=== PATIENT | female | born 1960 | race Caucasian/White ===

== ENCOUNTER → 2018-03-10 13:43 | Outpatient (CLI) | payer MEDICAID, SELFPAY | PROVIDERS: Family Provider Family Medicine; PCP Family Medicine; Visit Provider Family Medicine | DX: R00.0 Tachycardia, unspecified (principal) | CPT/HCPCS: 93225; 93226 ==

== ENCOUNTER 2018-10-15 09:24 | Emergency (ER) | payer MEDICAID, SELFPAY ==
[2018-10-15 09:25] VITALS: BP 134/78; PULSE 111; RESP 16; TEMP 36.7; O2SAT 96; BMI 35.4
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
--- NOTE | 2018-10-15 10:07 | ED.RN ---
DISCHARGE INSTRUCTIONS GIVEN TO AND REVIEWED WITH PATIENT, PATIENT DENIES QUESTIONS OR CONCERNS AND VOICES UNDERSTANDING OF DISCHARGE INSTRUCTIONS. PT AMBULATES OUT OF ROOM WITHOUT DIFFICULTY.
--- OUTSIDE RECORDS SUMMARY | 2018-12-10 04:50 | XMS RPT_ITS ---
:1960 Author Organization [employer] Address [address] [place] [address] Phone Care Team Providers Name Role Phone Ruby EMMANUEL, Ruy Kc Unavailable Reason for Visit Reason For Visit Description Start Date Postop - subsequent visit Preliminary reason for visit data, not yet signed by the author as of lower neck post Laminectomy C4 C5 C6 C7; fusion C3 C4 C5 C6 C7; instrumentation; allograft bone; local bone; application of Wei cigar head perforator. on 12/23/2017 Preliminary reason for visit data, not yet signed by the author as of Chief Complaint Chief Complaint Description Start Date lower neck post Laminectomy C4 C5 C6 C7; fusion C3 C4 C5 C6 C7; instrumentation; allograft bone; local bone; application of Wei cigar head perforator. on 12/23/2017 Preliminary chief complaint data, not yet signed by the author as of Instructions Instruction Description Start Date CompletedPlease follow-up with Primary Care Physician or Veterinary Bacteriologist for treatment or adjustment of medication regarding elevated blood pressure.Patient advised to follow-up with Primary Care Physician for BMI management. Plan of Care Type Date Detail Appointment 09:30 AM Ruy Beltran MD, [address] [facility], [place], [address], Patient education \[email or web address] Medications Medication Instructions Start Stop Generic Name NDC Provider Date Date MIRALAX PACK Take one POLYETHYLENE 87321017948 Aniya packet / GLYCOL 3350 [place] needed PA-C CYCLOBENZAPRINE 1 tablet 3-4 CYCLOBENZAPRINE [id number] Ruy Kc HCL 10 MG TABS times daily HCL Ruby EMMANUEL ALBUTEROL SULFATE as needed ALBUTEROL SULFATE [id number] Ruy Kc NEB NEBU Ruby EMMANUEL COMBIVENT 18-103 1 puff four IPRATROPIUM-ALBUT [id number] Ruy M MCG/ACT INHALATION times daily SHANNAN Ruby EMMANUEL AEROSOL AEROSPAN 80 2 puffs twice FLUNISOLIDE HFA [id number] Ruy M MCG/ACT INHALATION daily Ruby EMMANUEL AEROSOL SOLUTION LISINOPRIL 10 MG 1 tablet daily LISINOPRIL [id number] Ruy M TABS Ruby EMMANUEL Conditions or Problems Problem Problem Onset Status Entry Provider Comment Standard Annotate Name Code Date Date Description S/P 33147431241 Active Aniya History of laminectomy cervical 01 (SNOMED 01/11 01/11 [place] cervical spine C4-[address]) PA-C fusion C3-7 fusion Spondylolis 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 Active Ruy 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 Vital Signs Date Name Value Unit Description BMI (Body Mass 35.43 kg/m2 Body Mass Index Index) [Ratio] Preliminary vital sign data, not yet signed by the author as of BP Diastolic 95 mm[Hg] blood pressure, diastolic Preliminary vital sign data, not yet signed by the author as of BP Diastolic 84 mm[Hg] blood pressure, diastolic, second observation Preliminary vital sign data, not yet signed by the author as of BP Systolic 140 mm[Hg] blood pressure, systolic Preliminary vital sign data, not yet signed by the author as of BP Systolic 133 mm[Hg] blood pressure, systolic, second observation Preliminary vital sign data, not yet signed by the author as of Heart Rate 105 /min pulse rate E&M Preliminary vital sign data, not yet signed by the author as of Height 62 [in_us] height E&M Preliminary vital sign data, not yet signed by the author as of Height 157 cm height in centimeters E&M Preliminary vital sign data, not yet signed by the author as of Weight Measured 193 [lb_av] weight E&M Preliminary vital sign data, not yet signed by the author as of Weight Measured 88 kg weight in kilograms E&M Preliminary vital sign data, not yet signed by the author as of Results Date Name Value Unit Range Flag Description Office Visit: Postop - subsequent visit, Rm: MEDS REVIEW Done Documentation of current medications (procedure) Preliminary observation data, not yet signed by the author as of MRI HX of the cervical on MRI (magnetic 09/17/2017 at [facility]) history Preliminary observation data, not yet signed by the author as of Preliminary observation data, not yet signed by the author as of Clinical Summary: HMSPatientID OOP account number Procedures Code Procedure Name Date Entry Date CPT-76476 XR CERVICAL 2-3 VWS AP/LAT G8730 Pain assessment documented as positive - follow-up documented G8427 Current medications documented 1036F Tobacco screening was negative - non user G8417 BMI documented as above normal parameters - follow-up documented [id number] Patient Encounter Medications Administered No information available. Immunizations No information available. Advance Directives There may be information available, but it has not been provided by the sender. Assessments There may be information available, but it has not been provided by the sender. Review of Systems There may be information available, but it has not been provided by the sender. Family History There may be information available, but it has not been provided by the sender. History of Past Illness There may be information available, but it has not been provided by the sender. History of Present Illness There may be information available, but it has not been provided by the sender.
--- OUTSIDE RECORDS SUMMARY | 2018-12-10 04:50 | XMS RPT_ITS ---
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 silhouette: Normal cardiomediastinal silhouette. Other: Partially visualized cervical spinal fusion hardware noted. IMPRESSION: No acute radiographic abnormality. Log Roller: DinnerTimeB Transcribe Date/Time: Mar 01 2018 7:13P Dictated by : POLINA JI MD This examination was interpreted and the report reviewed and electronically signed by: POLINA JI MD on Mar 01 2018 7:13PM EST [id number] CBC AND DIFFERENTIAL Collected: 03/01/2018 Status: F Source: [place] 5:05 PM [facility] REPOSITORY TYPE CODE TESTS RESULT OUT OF REFERENCE UNITS RANGE LAB WBC 3.70-11.00 k/uL WBC 7.30 LAB RBC 3.90-5.20 m/uL RBC 4.70 LAB HGB 11.5-15.5 g/dL Hemoglobin 14.0 LAB HCT 36.0-46.0 % Hematocrit 43.6 LAB MCV 80.0-100.0 fL MCV 92.8 LAB MCH 26.0-34.0 pG MCH 29.8 LAB MCHC 30.5-36.0 g/dL MCHC 32.1 LAB RDWCV 11.5-15.0 % RDW-CV 12.1 LAB PLTCT 150-400 k/uL Platelet High Count 405 LAB MPV 9.0-12.7 fL MPV 9.7 LAB ANEUT % Neut% 51.4 LAB AANEUT 1.45-7.50 k/uL Abs Neut 3.75 LAB ALYMP % Lymph% 27.4 LAB AALYMP 1.00-4.00 k/uL Abs Lymph 2.00 LAB AMONO % Hawkins% 9.0 LAB AAMONO <0.87 k/uL Abs Hawkins 0.66 LAB AEOS % Eosin% 10.3 LAB AAEOS <0.46 k/uL Abs High Eosin 0.75 LAB ABASO % Baso% 1.9 LAB AABASO <0.11 k/uL Abs Baso High 0.14 LAB AUNRBC 0 /100 WBC NRBCs 0.0 LAB ABNRBC <0.01 k/uL Absolute nRBC <0.01 LAB DTYP DTYPE Auto Diff Performed By: #### CBCDIF, CMP, TSH #### [facility] [address] [place], [place] [address] COMP METABOLIC PANEL Collected: 03/01/2018 Status: F Source: [place] 5:05 PM [facility] REPOSITORY TYPE CODE TESTS RESULT OUT OF REFERENCE UNITS RANGE LAB TP 6.3-8.0 g/dL Protein, Total 7.8 LAB ALB 3.9-4.9 g/dL Albumin 4.6 LAB CA 8.5-10.2 mg/dL Calcium, Total 9.8 LAB TBIL 0.2-1.3 mg/dL Bilirubin, Total 0.2 LAB ALKP 32-117 U/L Alkaline Phosphatase 101 LAB AST 13-35 U/L AST High 57 LAB GLU 74-99 mg/dL Glucose High 104 Result Comment: The [place] Diabetes Association (ADA) provides guidance for cutoff values for fasting glucose and random glucose. The ADA defines fasting as no caloric intake for at least 8 hours. Fas ting plasma glucose results between 100 to 125 mg/dL indicate increased risk for diabetes (prediabetes). Fasting plasma glucose results greater than or equal to 126 mg/dL meet the criteria for diagnosis of diabetes. In the absence of unequivocal hyperglycemia, results should be confirmed by repeat testing. In a patient with classic symptoms of hyperglycemia or hyperglycemic crisis, random plasma glucose results greater than or equal to 200 mg/dL meet the criteria for diagnosis of diabetes. Reference: Standards of Medical Care in Diabetes 2016, [place] Diabetes Association. Diabetes Care. 2016.39(Suppl 1). LAB BUN 7-21 mg/dL BUN 18 LAB CRET 0.58-0.96 mg/dL Creatinine 0.88 LAB NA 136-144 mmol/L Low Sodium 133 LAB K 3.7-5.1 mmol/L Potassium 4.8 LAB CL 97-105 mmol/L Low Chloride 96 LAB CO2 22-30 mmol/L CO2 25 LAB AGAP 9-18 mmol/L Anion Gap 12 LAB ALT 7-38 U/L ALT High 93 LAB GFRAA eGFR- Amer. >60 LAB GFRNAA . eGFR-All Other Races >60 Result Comment: eGFR (Estimated GFR) Units of measure: mL/min/1.73 meters squared eGFR is derived from the reexpressed MDRD Study equation using the following parameters: serum creatinine, age, gender and race. The creatinine assay has been calibrated to be traceable to IDMS. An eGFR <60 mL/min/1.73m2 for >3 months is consistent with chronic kidney disease. Refer to KDOQI guidelines for clinical interpretation. In patients with unstable renal function, e.g. those with acute kidney injury, the eGFR may not accurately reflect actual GFR. Performed By: #### CBCDIF, CMP, TSH #### [facility] [address] [place], [place] [address] TSH Collected: 03/01/2018 Status: F Source: [place] 5:05 PM [facility] REPOSITORY TYPE CODE TESTS RESULT OUT OF RANGE REFERENCE UNITS LAB TSH 0.400-5.500 uU/mL TSH 2.550 Performed By: #### CBCDIF, CMP, TSH #### [facility] [address] [place], [place] [address] PROGRESS Observed: 03/01/2018 Status: COMPLETED Source: [place] 4:21 PM [facility] REPOSITORY HNO ID: [id number] Author: Contreras Valdivia Service: (none) Author Type: Physician Type: Progress Notes Filed: 03/01/2018 5:00 PM Note Text: Patient presents with: Cough HPI: Patient presents today for office visit for follow up. She also did not do her labs. When was here the last time, was to have done a holter and echo and has not yet. Echo is scheduled. We are going to try and get holter rescheduled. Nursing Notes: Codie Espinosa LPN 03/01/2018 3:59 PM Signed Using mucinex D OTC which helps to control cough. Wondering if people smoking in her apartment while she was at hospital has irritated her COPD/allergies. Was having to use her rescue inhaler 4-5 times per day over the weekend. Doesn't have a nebulizer at home. Worried about inhaler/nebulizer medications causing increase in her tachycardia. Still has aerospan that she is using and will be picking up flovent that insurance requests to replace it. Explained to her that mucinex d will also cause issues with tachycardia. Just had walked back on arrival. Patient presents today complaining of increased cough. Duration: cough has been there for two weeks. Cough is productive:YES, greenish. . Fever: :No. Shortness of breath:YES. Sore throat :No. Ear Pain :No. Chest Pain :No. No nausea or vomiting or diarrhea. MEDICATIONS: Current Outpatient Prescriptions: ipratropium-albuterol (COMBIVENT RESPIMAT) 20-100 mcg/actuation mist Inhale 1 Puff as instructed four times daily. Fluticasone Propionate (FLOVENT DISKUS) 250 mcg/actuation dsdv Inhale 1 Puff as instructed twice daily. HYDROcodone-acetaminophen (NORCO) 5-325 mg per tablet Take 1 tablet by mouth every 6 hours as needed. diazePAM (VALIUM) 5 mg tablet Take 5 mg by mouth every 6 hours as needed for Anxiety. hydrOXYzine pamoate (VISTARIL) 25 mg capsule Take 1 capsule by mouth three times daily as needed. cyclobenzaprine (FLEXERIL) 10 mg tablet Take 1 tablet by mouth every 8 hours as needed. polyethylene glycol 3350 (MIRALAX, GLYCOLAX) 17 gram/dose powder Take 17 g by mouth once daily. This is one (1) capful. Stir in 8oz of liquid each day. fluticasone (FLONASE) 50 mcg/actuation nasal spray Use 2 Sprays in each nostril once daily. FOR ALLERGIC NASAL SX. albuterol HFA (VENTOLIN HFA) 90 mcg/actuation inhaler Inhale 2 Puffs as instructed every 4 hours as needed for Wheezing/Shortness of Breath. lisinopril (ZESTRIL, PRINIVIL) 10 mg tablet Take 1 tablet by mouth once daily. thiamine (VITAMIN B1) 100 mg tablet Take 1 tablet by mouth once daily. No current facility-administered medications for this visit. ALLERGIES: ALLERGIES Allergen Reactions - Dust Other: See Comments PAST MEDICAL HISTORY Diagnosis Date - Abdominal pain, unspecified site - Asthma - HTN (hypertension) PAST SURGICAL HISTORY Procedure Laterality Date - BREAST BIOPSY NEEDLE LEFT - COLONOSCOP W/ OR W/O [facility] SPEC 10/06/13 Colonoscopy - HYSTERECTOMY HX 2007 JE[facility]DE BSO endometriosis - PAST SURGICAL HISTORY OF c spine surg FAMILY HISTORY Problem Relation Age of Onset - Cancer Father skin cancer - suicide [OTHER] Brother - None Sister - None Sister - None Sister - Colon Cancer Other multiple aunts and uncles with colon cancer Social History Marital status: Spouse name: Years of education: Number of children: 4 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 REVIEW OF SYSTEMS All other reviewed and negative other than HPI. VITALS: BP 132/92 Pulse (!) 125 Wt 86.2 kg (190 lb) SpO2 95% BMI 34.75 kg/m2 Last 4 Encounter Wt Readings: Date: Wt: 03/01/2018 86.2 kg (190 lb) 12/29/2017 88.9 kg (196 lb) 12/22/2017 88.9 kg (196 lb) 11/02/2017 87.5 kg (192 lb 12.8 oz) PHYSICAL EXAMINATION: General appearance: Well appearing, alert, in no acute distress, well-hydrated, well nourished. Skin: Skin color, texture, turgor normal, no suspicious rashes or lesions Head: Normocephalic, no masses, lesions, tenderness or abnormalities Neck: supple, no lymphadenopathy Lungs: Lungs clear to auscultation. No wheezing, rhonchi, rales Heart:tachy without murmur, gallop, or rubs. No ectopy Abdomen: Normal abdominal exam, Abdomen soft, non-tender. Bowel sounds normal. No masses, organomegaly Extremities: No deformities, edema, skin discoloration, clubbing or cyanosis. Good capillary refill. ASSESSMENT/PLAN: 1. Acute bronchitis with chronic obstructive pulmonary disease (COPD) (HCC) - ICD9: 491.22, ICD10: J44.0, J20.9 (primary diagnosis) - Red flags for re-assessment reviewed with patient in detail. - Call if symptoms worsen at all or if not better in one to two weeks - XR CHEST 2V FRONTAL/LAT - DOXYCYCLINE MONOHYDRATE 100 MG TABLET 2. Tachycardia - ICD9: 785.0, ICD10: R00.0 - get labs and holter and echo as ordered last visit. Call if christoph. - ECG COMPLETE W INTERPRETATION 3. Essential hypertension - ICD9: 401.9, ICD10: I10 - follow numbers Contreras Valdivia MD CNOV Observed: 03/01/2018 Status: COMPLETED Source: [place] 4:00 PM [facility] REPOSITORY Office Visit (FAMPWS) SULMA NUNES ([id number]) 1960 F Date Time Provider Department 03/01/18 4:00 PM [facility] During your visit today, we recorded the following information about you: Pulse Blood pressure Weight 125/minute 132/92 86.2 kg Codie Snowboydrobby RANDY 03/01/2018 3:59 PM Signed Using mucinex D OTC which helps to control cough. Wondering if people smoking in her apartment while she was at hospital has irritated her COPD/allergies. Was having to use her rescue inhaler 4-5 times per day over the weekend. Doesn't have a nebulizer at home. Worried about inhaler/nebulizer medications causing increase in her tachycardia. Still has aerospan that she is using and will be picking up flovent that insurance requests to replace it. Codie Snowodin PADILLA 03/01/2018 3:59 PM Addendum Wants to have holter monitor done at [facility] [phone]. [facility] [phone]. Get delsym or robitussin DM over the counter if you need it. Contreras Valdivia MD 03/01/2018 5:00 PM Signed Patient presents with: Cough HPI: Patient presents today for office visit for follow up. She also did not do her labs. When was here the last time, was to have done a holter and echo and has not yet. Echo is scheduled. We are going to try and get holter rescheduled. Nursing Notes: Codie Espinosa RANDY 03/01/2018 3:59 PM Signed Using mucinex D OTC which helps to control cough. Wondering if people smoking in her apartment while she was at hospital has irritated her COPD/allergies. Was having to use her rescue inhaler 4-5 times per day over the weekend. Doesn't have a nebulizer at home. Worried about inhaler/nebulizer medications causing increase in her tachycardia. Still has aerospan that she is using and will be picking up flovent that insurance requests to replace it. Explained to her that mucinex d will also cause issues with tachycardia. Just had walked back on arrival. Patient presents today complaining of increased cough. Duration: cough has been there for two weeks. Cough is productive:YES, greenish. . Fever: :No. Shortness of breath:YES. Sore throat :No. Ear Pain :No. Chest Pain :No. No nausea or vomiting or diarrhea. MEDICATIONS: Current Outpatient Prescriptions: ipratropium-albuterol (COMBIVENT RESPIMAT) 20-100 mcg/actuation mist Inhale 1 Puff as instructed four times daily. Fluticasone Propionate (FLOVENT DISKUS) 250 mcg/actuation dsdv Inhale 1 Puff as instructed twice daily. HYDROcodone-acetaminophen (NORCO) 5-325 mg per tablet Take 1 tablet by mouth every 6 hours as needed. diazePAM (VALIUM) 5 mg tablet Take 5 mg by mouth every 6 hours as needed for Anxiety. hydrOXYzine pamoate (VISTARIL) 25 mg capsule Take 1 capsule by mouth three times daily as needed. cyclobenzaprine (FLEXERIL) 10 mg tablet Take 1 tablet by mouth every 8 hours as needed. polyethylene glycol 3350 (MIRALAX, GLYCOLAX) 17 gram/dose powder Take 17 g by mouth once daily. This is one (1) capful. Stir in 8oz of liquid each day. fluticasone (FLONASE) 50 mcg/actuation nasal spray Use 2 Sprays in each nostril once daily. FOR ALLERGIC NASAL SX. albuterol HFA (VENTOLIN HFA) 90 mcg/actuation inhaler Inhale 2 Puffs as instructed every 4 hours as needed for Wheezing/Shortness of Breath. lisinopril (ZESTRIL, PRINIVIL) 10 mg tablet Take 1 tablet by mouth once daily. thiamine (VITAMIN B1) 100 mg tablet Take 1 tablet by mouth once daily. No current facility-administered medications for this visit. ALLERGIES: ALLERGIES Allergen Reactions - Dust Other: See Comments PAST MEDICAL HISTORY Diagnosis Date - Abdominal pain, unspecified site - Asthma - HTN (hypertension) PAST SURGICAL HISTORY Procedure Laterality Date - BREAST BIOPSY NEEDLE LEFT - COLONOSCOP W/ OR W/O [facility] SPEC 10/06/13 Colonoscopy - HYSTERECTOMY HX 2006 [facility]AUDE BSO endometriosis - PAST SURGICAL HISTORY OF c spine surg FAMILY HISTORY Problem Relation Age of Onset - Cancer Father skin cancer - suicide [OTHER] Brother - None Sister - None Sister - None Sister - Colon Cancer Other multiple aunts and uncles with colon cancer Social History Marital status: Spouse name: Years of education: Number of children: 4 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 REVIEW OF SYSTEMS All other reviewed and negative other than HPI. VITALS: BP 132/92 Pulse (!) 125 Wt 86.2 kg (190 lb) SpO2 95% BMI 34.75 kg/m2 Last 4 Encounter Wt Readings: Date: Wt: 03/01/2018 86.2 kg (190 lb) 12/29/2017 88.9 kg (196 lb) 12/22/2017 88.9 kg (196 lb) 11/02/2017 87.5 kg (192 lb 12.8 oz) PHYSICAL EXAMINATION: General appearance: Well appearing, alert, in no acute distress, well-hydrated, well nourished. Skin: Skin color, texture, turgor normal, no suspicious rashes or lesions Head: Normocephalic, no masses, lesions, tenderness or abnormalities Neck: supple, no lymphadenopathy Lungs: Lungs clear to auscultation. No wheezing, rhonchi, rales Heart:tachy without murmur, gallop, or rubs. No ectopy Abdomen: Normal abdominal exam, Abdomen soft, non-tender. Bowel sounds normal. No masses, organomegaly Extremities: No deformities, edema, skin discoloration, clubbing or cyanosis. Good capillary refill. ASSESSMENT/PLAN: 1. Acute bronchitis with chronic obstructive pulmonary disease (COPD) ([facility]) - ICD9: 491.22, ICD10: J44.0, J20.9 (primary diagnosis) - Red flags for re-assessment reviewed with patient in detail. - Call if symptoms worsen at all or if not better in one to two weeks - XR CHEST 2V FRONTAL/LAT - DOXYCYCLINE MONOHYDRATE 100 MG TABLET 2. Tachycardia - ICD9: 785.0, ICD10: R00.0 - get labs and holter and echo as ordered last visit. Call if worsnes. - ECG COMPLETE W INTERPRETATION 3. Essential hypertension - ICD9: 401.9, ICD10: I10 - follow numbers Contreras Valdivia MD Referring Provider: SELF [[id number]] Allergies As of Date: 03/01/2018 Noted Allergy Reaction DUST 06/30/2017 14 - Other: See Comments Date Reviewed: 02/12/2018 Reviewed by: Satya Stewart - Fully Assessed Reason for Visit: Cough [28] Primary Visit Diagnosis:Acute bronchitis with chronic obstructive pulmonary disease (COPD) ([facility]) [J44.0, J20.9] Other Visit Diagnoses:Tachycardia [R00.0] Essential hypertension [I10] Order(s):ECG COMPLETE W INTERPRETATION [ECG01] Order #: [id number] FUTURE XR CHEST 2V FRONTAL/LAT [[id number]] Order #: [id number] FUTURE doxycycline monohydrate 100 mg tabletTake 1 tablet by mouth twice daily for 10 days.Disp: 20 tabletRfl: 0 benzonatate (TESSALON PERLE) 100 mg capsule1-2 perles po tid prnDisp: 30 capsuleRfl: 0 Prescriptions as of 03/01/2018 Sig: IPRATROPIUM 20 MCG-ALBUTEROL * Inhale 1 Puff as instructed f* DOXYCYCLINE MONOHYDRATE 100 M* Take 1 tablet by mouth twice * BENZONATATE 100 MG CAPSULE 1-2 perles po tid prn FLUTICASONE 250 MCG/ACTUATION* Inhale 1 Puff as instructed t* HYDROCODONE 5 MG-ACETAMINOPHE* Take 1 tablet by mouth every * DIAZEPAM 5 MG TABLET Take 5 mg by mouth every 6 ho* HYDROXYZINE PAMOATE 25 MG CAP* Take 1 capsule by mouth three* CYCLOBENZAPRINE 10 MG TABLET Take 1 tablet by mouth every * POLYETHYLENE GLYCOL 3350 17 G* Take 17 g by mouth once daily* FLUTICASONE 50 MCG/ACTUATION * Use 2 Sprays in each nostril * ALBUTEROL SULFATE HFA 90 MCG/* Inhale 2 Puffs as instructed * LISINOPRIL 10 MG TABLET Take 1 tablet by mouth once d* THIAMINE HCL (VITAMIN B1) 100* Take 1 tablet by mouth once d* Problem List As Of Date 03/01/2018 Noted Resolved Asthma [J45.909] INVALID FOR* Anxiety and depression [F41.9, F32.9] INVALID FOR* Tobacco use disorder [F17.200] INVALID FOR*03/09/2017 Cervical radicular pain [M54.12] INVALID FOR* Brachial neuritis or radiculitis [M54.12] INVALID FOR* Essential hypertension [I10] INVALID FOR* ETOH abuse [F10.10] INVALID FOR* RLQ abdominal pain [R10.31] INVALID FOR*12/22/2017 More... Encounter for screening for malignant neoplasm *INVALID FOR* More... Other instructions from your clinician: Wants to have holter monitor done at [facility] [phone]. [facility] [phone]. Get delsym or robitussin DM over the counter if you need it. Visit Notes: >> Codie Espinosa LPN ThuMar 01, 2018 3:46 PM Status: Signed Using mucinex D OTC which helps to control cough. Wondering if people smoking in her apartment while she was at hospital has irritated her COPD/allergies. Was having to use her rescue inhaler 4-5 times per day over the weekend. Doesn't have a nebulizer at home. Worried about inhaler/nebulizer medications causing increase in her tachycardia. Still has aerospan that she is using and will be picking up flovent that insurance requests to replace it. Prescriptions ordered this encounter Disp Refills Start End DOXYCYCLINE MONOHYDRATE 100 MG TABLET 20 t* 0 03/01/2018 03/11/2018 Route: ORAL Sig: Take 1 tablet by mouth twice daily for 10 days. BENZONATATE 100 MG CAPSULE 30 c* 0 03/01/2018 Si-2 perles po tid prn Disposition: Return in about 2 weeks (around 03/15/2018). Follow-up and Disposition History Recorded Encounter Status:Closed by CONTRERAS VALDIVIA MD on 03/01/18 Observed: 02/14/2018 Status: F Source: [place] URINE CULTURE 8:56 AM [facility] REPOSITORY Sp. Request/Comment: - Specimen received in preservative Culture Result - No growth (<1,000 CFU/ml) Performed By: #### URCUL #### [facility] [address] [id number] PROGRESS Observed: 02/12/2018 Status: COMPLETED Source: [place] 11:49 AM [facility] REPOSITORY HNO ID: [id number] Author: Contreras Valdivia Service: (none) Author Type: Physician Type: Progress Notes Filed: 02/12/2018 12:34 PM Note Text: Patient presents with: UTI: Burning, urgency and frequency for 2 days. Palpitations: Has been anxious, states her heart rate was tachy in hospitial dec. . has not experienced any palpitations. HPI: Patient presents today for office visit for follow up. Urology: patient is concerned about urinary symptoms. Duration of symptoms: 2 days Dysuria: Yes. Urinary urgency: yes Urinary frequency: Yes. Suprapubic pain: No. Back pain: No. Fever: No. Nausea: No. Vomiting: No. Had cath in b Had spinal surgery in Dec. Was tachy in the hospital. Went numb twice when she stood up after surgery. Heart rate was fast and she went back to hospital. They just told her not to get up by herself and they wondered if tachycardia was causing it. No actual syncope. Was in rehab facility. Still occasionally does not feel right. Short of breath with exertion. No edema. No chest pain MEDICATIONS: Current Outpatient Prescriptions: HYDROcodone-acetaminophen (NORCO) 5-325 mg per tablet Take 1 tablet by mouth every 6 hours as needed. diazePAM (VALIUM) 5 mg tablet Take 5 mg by mouth every 6 hours as needed for Anxiety. hydrOXYzine pamoate (VISTARIL) 25 mg capsule Take 1 capsule by mouth three times daily as needed. cyclobenzaprine (FLEXERIL) 10 mg tablet Take 1 tablet by mouth every 8 hours as needed. polyethylene glycol 3350 (MIRALAX, GLYCOLAX) 17 gram/dose powder Take 17 g by mouth once daily. This is one (1) capful. Stir in 8oz of liquid each day. flunisolide (AEROSPAN) 80 mcg/actuation HFAA Inhale 2 Puffs as instructed twice daily. Rinse mouth after use. fluticasone (FLONASE) 50 mcg/actuation nasal spray Use 2 Sprays in each nostril once daily. FOR ALLERGIC NASAL SX. ipratropium-albuterol (COMBIVENT RESPIMAT) 20-100 mcg/actuation mist Inhale 1 Puff as instructed four times daily. albuterol HFA (VENTOLIN HFA) 90 mcg/actuation inhaler Inhale 2 Puffs as instructed every 4 hours as needed for Wheezing/Shortness of Breath. lisinopril (ZESTRIL, PRINIVIL) 10 mg tablet Take 1 tablet by mouth once daily. thiamine (VITAMIN B1) 100 mg tablet Take 1 tablet by mouth once daily. No current facility-administered medications for this visit. ALLERGIES: ALLERGIES Allergen Reactions - Dust Other: See Comments PAST MEDICAL HISTORY Diagnosis Date - Abdominal pain, unspecified site - Asthma - HTN (hypertension) PAST SURGICAL HISTORY Procedure Laterality Date - BREAST BIOPSY NEEDLE [facility] Colon[facility] - HYSTERECTOMY HX 2006 JE[facility]-CLAUDE BSO endometriosis FAMILY HISTORY Problem Relation Age of Onset - Cancer Father skin cancer - suicide [OTHER] Brother - None Sister - None Sister - None Sister - Colon Cancer Other multiple aunts and uncles with colon cancer Social History Marital status: Spouse name: Years of education: Number of children: 4 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 REVIEW OF SYSTEMS All other reviewed and negative other than HPI. HEALTH MAINTENANCE: Reviewed health maintenance issues today and recommended the following in detail. VITALS: BP 124/64 (BP Site: Left Arm, BP Position: Sitting, BP Cuff Size: Regular Adult) Pulse 106 Resp 18 Pulse 100% Last 4 Encounter Wt Readings: Date: Wt: 12/29/2017 88.9 kg (196 lb) 12/22/2017 88.9 kg (196 lb) 11/02/2017 87.5 kg (192 lb 12.8 oz) 10/23/2017 83.5 kg (184 lb) PHYSICAL EXAMINATION: General appearance: Well appearing, alert, in no acute distress, well-hydrated, well nourished. Skin: Skin color, texture, turgor normal, no suspicious rashes or lesions Head: Normocephalic, no masses, lesions, tenderness or abnormalities Neck: Supple, no adenopathy Lungs: Lungs clear to auscultation. No wheezing, rhonchi, rales Heart: RRR without murmur, gallop, or rubs. No ectopy Abdomen: Normal abdominal exam, Abdomen soft, non-tender. Bowel sounds normal. No masses, organomegaly Extremities: No deformities, edema, skin discoloration, clubbing or cyanosis. Good capillary refill. ASSESSMENT/PLAN: 1. Urinary frequency - ICD9: 788.41, ICD10: R35.0 (primary diagnosis) acute - Send urine for culture - Begin treatment with Macrobid 100 mg BID for 7 days - Patient education for prevention given - UA DIP B/O - URINE CULTURE - NITROFURANTOIN MONOHYDRATE AND MACROCRYSTAL 100 MG ORAL CAP 2. Anxiety and depression - ICD9: 300.00, 311, ICD10: F41.8 - continue meds. - HYDROXYZINE PAMOATE 25 MG CAPSULE 3. Tachycardia - ICD9: 785.0, ICD10: R00.0 - will work up . - Red flags for re-assessment reviewed with patient in detail. - ECG COMPLETE W INTERPRETATION-rate in 90's, nsr - ECHO - HOLTER MONITOR 24 HOUR - CBC + DIFF - COMP METABOLIC PANEL - TSH BLD 4. Acute cystitis with hematuria - ICD9: 595.0, ICD10: N30.01 - as above. Will recheck urine in two weeks. 5. Essential hypertension - ICD9: 401.9, ICD10: I10 - good control - Continue current medication(s) - Goal of BP <140/90 Contreras Valdivia MD RTO in two weeks and prn. CNOV Observed: 02/12/2018 Status: COMPLETED Source: [place] 11:00 AM [facility] REPOSITORY [facility] SULMA NUNES ([id number]) 1960 F Date Time Provider Department 02/12/18 11:00 AM [facility] VALDIVIA [facility] During your visit today, we recorded the following information about you: Pulse Respiration Blood pressure 106/minute 18/minute 124/64 Contreras Valdivia MD 02/12/2018 12:34 PM Signed Patient presents with: UTI: Burning, urgency and frequency for 2 days. Palpitations: Has been anxious, states her heart rate was tachy in hospitial dec. . has not experienced any palpitations. HPI: Patient presents today for office visit for follow up. Urology: patient is concerned about urinary symptoms. Duration of symptoms: 2 days Dysuria: Yes. Urinary urgency: yes Urinary frequency: Yes. Suprapubic pain: No. Back pain: No. Fever: No. Nausea: No. Vomiting: No. Had cath in Dec Had spinal surgery in Dec. Was tachy in the hospital. Went ANDquot;numbANDquot; twice when she stood up after surgery. Heart rate was fast and she went back to hospital. They just told her not to get up by herself and they wondered if tachycardia was causing it. No actual syncope. Was in rehab facility. Still occasionally does not feel right. Short of breath with exertion. No edema. No chest pain MEDICATIONS: Current Outpatient Prescriptions: HYDROcodone-acetaminophen (NORCO) 5-325 mg per tablet Take 1 tablet by mouth every 6 hours as needed. diazePAM (VALIUM) 5 mg tablet Take 5 mg by mouth every 6 hours as needed for Anxiety. hydrOXYzine pamoate (VISTARIL) 25 mg capsule Take 1 capsule by mouth three times daily as needed. cyclobenzaprine (FLEXERIL) 10 mg tablet Take 1 tablet by mouth every 8 hours as needed. polyethylene glycol 3350 (MIRALAX, GLYCOLAX) 17 gram/dose powder Take 17 g by mouth once daily. This is one (1) capful. Stir in 8oz of liquid each day. flunisolide (AEROSPAN) 80 mcg/actuation HFAA Inhale 2 Puffs as instructed twice daily. Rinse mouth after use. fluticasone (FLONASE) 50 mcg/actuation nasal spray Use 2 Sprays in each nostril once daily. FOR ALLERGIC NASAL SX. ipratropium-albuterol (COMBIVENT RESPIMAT) 20-100 mcg/actuation mist Inhale 1 Puff as instructed four times daily. albuterol HFA (VENTOLIN HFA) 90 mcg/actuation inhaler Inhale 2 Puffs as instructed every 4 hours as needed for Wheezing/Shortness of Breath. lisinopril (ZESTRIL, PRINIVIL) 10 mg tablet Take 1 tablet by mouth once daily. thiamine (VITAMIN B1) 100 mg tablet Take 1 tablet by mouth once daily. No current facility-administered medications for this visit. ALLERGIES: ALLERGIES Allergen Reactions - Dust Other: See Comments PAST MEDICAL HISTORY Diagnosis Date - Abdominal pain, unspecified site - Asthma - HTN (hypertension) PAST SURGICAL HISTORY Procedure Laterality Date - BREAST BIOPSY NEEDLE LEFT - COLONOSCOP W/ OR W/O BRSH SPEC 10/06/13 Colonoscopy - HYSTERECTOMY HX 2006 JEAN-CLAUDE BSO endometriosis FAMILY HISTORY Problem Relation Age of Onset - Cancer Father skin cancer - suicide [OTHER] Brother - None Sister - None Sister - None Sister - Colon Cancer Other multiple aunts and uncles with colon cancer Social History Marital status: Spouse name: Years of education: Number of children: 4 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 REVIEW OF SYSTEMS All other reviewed and negative other than HPI. HEALTH MAINTENANCE: Reviewed health maintenance issues today and recommended the following in detail. VITALS: BP 124/64 (BP Site: Left Arm, BP Position: Sitting, BP Cuff Size: Regular Adult) Pulse 106 Resp 18 Pulse 100% Last 4 Encounter Wt Readings: Date: Wt: 12/29/2017 88.9 kg (196 lb) 12/22/2017 88.9 kg (196 lb) 11/02/2017 87.5 kg (192 lb 12.8 oz) 10/23/2017 83.5 kg (184 lb) PHYSICAL EXAMINATION: General appearance: Well appearing, alert, in no acute distress, well-hydrated, well nourished. Skin: Skin color, texture, turgor normal, no suspicious rashes or lesions Head: Normocephalic, no masses, lesions, tenderness or abnormalities Neck: Supple, no adenopathy Lungs: Lungs clear to auscultation. No wheezing, rhonchi, rales Heart: RRR without murmur, gallop, or rubs. No ectopy Abdomen: Normal abdominal exam, Abdomen soft, non-tender. Bowel sounds normal. No masses, organomegaly Extremities: No deformities, edema, skin discoloration, clubbing or cyanosis. Good capillary refill. ASSESSMENT/PLAN: 1. Urinary frequency - ICD9: 788.41, ICD10: R35.0 (primary diagnosis) acute - Send urine for culture - Begin treatment with Macrobid 100 mg BID for 7 days - Patient education for prevention given - UA DIP B/O - URINE CULTURE - NITROFURANTOIN MONOHYDRATE ANDamp; MACROCRYSTAL 100 MG ORAL CAP 2. Anxiety and depression - ICD9: 300.00, 311, ICD10: F41.8 - continue meds. - HYDROXYZINE PAMOATE 25 MG CAPSULE 3. Tachycardia - ICD9: 785.0, ICD10: R00.0 - will work up . - Red flags for re-assessment reviewed with patient in detail. - ECG COMPLETE W INTERPRETATION-rate in 90's, nsr - ECHO - HOLTER MONITOR 24 HOUR - CBC + DIFF - COMP METABOLIC PANEL - TSH BLD 4. Acute cystitis with hematuria - ICD9: 595.0, ICD10: N30.01 - as above. Will recheck urine in two weeks. 5. Essential hypertension - ICD9: 401.9, ICD10: I10 - good control - Continue current medication(s) - Goal of BP ANDlt;140/90 Contreras Valdivia MD RTO in two weeks and prn. Referring Provider: SELF [[id number]] Allergies As of Date: 02/12/2018 Noted Allergy Reaction DUST 06/30/2017 14 - Other: See Comments Date Reviewed: 02/12/2018 Reviewed by: Satya Stewart - Fully Assessed Reason for Visit: UTI [116] Cmt: Burning, urgency and frequency for 2 days. Palpitations [79] Cmt: Has been anxious, states her heart rate was tachy in hospitial dec.23. has not experienced any palpitations. Reason For Visit History Recorded Primary Visit Diagnosis:Urinary frequency [R35.0] Other Visit Diagnoses:Anxiety and depression [F41.8] Tachycardia [R00.0] Acute cystitis with hematuria [N30.01] Essential hypertension [I10] Order(s):hydrOXYzine pamoate (VISTARIL) 25 mg capsuleTake 1 capsule by mouth three times daily as needed.Disp: 30 capsuleRfl: 0 UA DIP B/O [[id number]] Order #: [id number] URINE CULTURE [SQURCUL] Order #: [id number] ECG COMPLETE W INTERPRETATION [ECG01] Order #: [id number] FUTURE ECHO [236072] Order #: [id number]: 1 FUTURE HOLTER MONITOR 24 HOUR [[id number]] Order #: [id number] FUTURE CBC + DIFF [SQCBCDIF] Order #: [id number] FUTURE COMP METABOLIC PANEL [SQCMP] Order #: [id number] FUTURE TSH BLD [SQTSH] Order #: [id number] FUTURE nitrofurantoin monohydrate and macrocrystal (MACROBID) 100 mg capsuleTake 1 capsule by mouth twice daily with meals for 7 days.Disp: 14 capsuleRfl: 0 Prescriptions as of 02/12/2018 Sig: HYDROCODONE 5 MG-ACETAMINOPHE* Take 1 tablet by mouth every * DIAZEPAM 5 MG TABLET Take 5 mg by mouth every 6 ho* HYDROXYZINE PAMOATE 25 MG CAP* Take 1 capsule by mouth three* CYCLOBENZAPRINE 10 MG TABLET Take 1 tablet by mouth every * POLYETHYLENE GLYCOL 3350 17 G* Take 17 g by mouth once daily* FLUNISOLIDE 80 MCG/ACTUATION * Inhale 2 Puffs as instructed * FLUTICASONE 50 MCG/ACTUATION * Use 2 Sprays in each nostril * IPRATROPIUM 20 MCG-ALBUTEROL * Inhale 1 Puff as instructed f* ALBUTEROL SULFATE HFA 90 MCG/* Inhale 2 Puffs as instructed * LISINOPRIL 10 MG TABLET Take 1 tablet by mouth once d* THIAMINE HCL (VITAMIN B1) 100* Take 1 tablet by mouth once d* NITROFURANTOIN MONOHYDRATE AND * Take 1 capsule by mouth twice* Medication notes this encounter OXYCODONE 5 MG TABLET >> Satya Stewart 02/12/2018 11:13 AM >> SATYA STEWART Feb 12, 2018 11:13 AM Patient no longer taking. BUPROPION XL 300 MG 24 HR TAB >> Satya Stewart 02/12/2018 11:13 AM >> SATYA STEWART ThuFeb 12, 2018 11:13 AM Patient no longer taking. DICYCLOMINE 20 MG TABLET >> Satya Stewart 02/12/2018 11:12 AM >> SATYA STEWART Feb 12, 2018 11:12 AM Patient no longer taking. PEG 3350 240 GRAM-ELECTROLYTES 22.72 GRAM-6.72 G-5.84 G POWDR FOR SOLN >> Satya Stewart 02/12/2018 11:14 AM >> SATYA STEWART Feb 12, 2018 11:14 AM Done SERTRALINE 50 MG TABLET >> Satya Stewart 02/12/2018 11:14 AM >> SATYA STEWART Feb 12, 2018 11:14 AM Patient no longer taking. Problem List As Of Date 02/12/2018 Noted Resolved Asthma [J45.909] INVALID FOR* Anxiety and depression [F41.8] INVALID FOR* Tobacco use disorder [F17.200] INVALID FOR*03/09/2017 Cervical radicular pain [M54.12] INVALID FOR* Brachial neuritis or radiculitis [M54.12] INVALID FOR* Essential hypertension [I10] INVALID FOR* ETOH abuse [F10.10] INVALID FOR* RLQ abdominal pain [R10.31] INVALID FOR*12/22/2017 More... Encounter for screening for malignant neoplasm *INVALID FOR* More... Prescriptions ordered this encounter Disp Refills Start End HYDROXYZINE PAMOATE 25 MG CAPSULE 30 c* 0 02/12/2018 Route: ORAL Sig: Take 1 capsule by mouth three times daily as needed. Cosign accepted by CONTRERAS VALDIVIA MD[[id number]] on 02/12/2018 11:58 AM NITROFURANTOIN MONOHYDRATE AND MACROCR* 14 c* 0 02/12/2018 02/19/2018 Route: ORAL Sig: Take 1 capsule by mouth twice daily with meals for 7 days. Medications Discontinued During This Encounter hydrOXYzine pamoate (VISTARIL) 25 mg* 30 c* 0 07/24/2017 02/12/2018 Route: ORAL Sig: Take 1 capsule by mouth three times daily as needed. Disc: Reason for discontinue is not on file. oxyCODONE IR (ROXICODONE) 5 mg immed* 02/12/2018 Class: Historical Med Route: ORAL Sig: Take 5 mg by mouth every 4 hours as needed. Disc: Reason for discontinue is not on file. buPROPion XL (WELLBUTRIN XL) 300 mg * 30 t* 0 12/01/2017 02/12/2018 Route: ORAL Sig: Take 1 tablet by mouth once daily. Disc: Reason for discontinue is not on file. dicyclomine (BENTYL) 20 mg tablet 40 t* 0 12/01/2017 02/12/2018 Route: ORAL Sig: Take 1 tablet by mouth every 6 hours. prn Disc: Reason for discontinue is not on file. dicyclomine (BENTYL) 20 mg tablet 40 t* 0 12/01/2017 02/12/2018 Route: ORAL Sig: Take 1 tablet by mouth every 6 hours. prn Disc: Reason for discontinue is not on file. peg 3350-electrolytes (COLYTE) 240-2* 1 Co* 0 11/13/2017 02/12/2018 Sig: Take 4000 ml as directed. Follow written instructions from the doctor's office. Disc: Reason for discontinue is not on file. sertraline (ZOLOFT) 50 mg tablet 30 t* 1 10/23/2017 02/12/2018 Sig: Take 1/2 tab once a day orally for one week then 1 tab once a day Disc: Reason for discontinue is not on file. Disposition: Return in about 2 weeks (around 02/26/2018). Follow-up and Disposition History Recorded Encounter Status:Closed by CONTRERAS VALDIVIA MD on 02/12/18 HEMOGRAM W/ AUTODIFF Collected: 12/30/2017 Status: F Source: [place] [facility] 6:09 AM SYSTEM REPOSITORY TYPE CODE TESTS RESULT OUT OF REFERENCE UNITS RANGE LAB IWBC 3.6-10.7 10*3/uL WBC Normal 7.1 LAB RBC 3.80-5.20 10*6/uL RBC Normal 3.86 LAB HGB 11.7-16.0 g/dL Hemoglobin Normal 11.9 LAB HCT 35.0-47.0 % Hematocrit Normal 35.5 LAB MCV 79.0-98.0 fL MCV Normal 91.9 LAB MCH 26.0-34.0 pg MCH Normal 30.7 LAB MCHC 32.0-36.0 % MCHC Normal 33.4 LAB RDW 11.5-14.5 % RDW Normal 13.0 LAB PLT 140-440 10*3/uL Platelet Normal 435 LAB MPV 7.4-10.4 fL Low MPV 6.7 LAB GRAN% 40.0-80.0 % Granulocytes Normal 65.6 LAB LYMP% 20.0-40.0 % Lymphocytes Normal 20.9 LAB MONO% 2.0-10.0 % Monocytes Normal 9.1 LAB EOS% 1.0-6.0 % Eosinophils Normal 3.5 LAB BAS% 0.0-2.0 % Basophils Normal 0.9 LAB ANC 1.8-7.0 10*3/uL Abs Normal Neutrophile Cnt 4.6 LAB ALC 1.0-4.3 10*3/uL Abs Lymph Cnt Normal 1.5 LAB AMC 0.0-0.8 10*3/uL Abs Monocyte Normal Cnt 0.6 LAB AEC 0.0-0.5 10*3/uL Abs Eosin Cnt Normal 0.2 LAB ABC 0.0-0.2 10*3/uL Abs Baso Cnt Normal 0.1 Performed By: #### HEMPRAMOD, BMP3M #### [address] [address] [place] [address] BASIC METABOLIC PANEL Collected: 12/30/2017 Status: F Source: [facility] 6:09 AM SYSTEM REPOSITORY TYPE CODE TESTS RESULT OUT OF RANGE REFERENCE UNITS LAB NA3 137-145 mmol/L Low Sodium 134 LAB K3 3.5-5.1 mmol/L Normal Potassium 4.7 LAB CL3 98-107 mmol/L Chloride Normal 100 LAB CO23 22-30 mmol/L Carbon Normal Dioxide 27 LAB ANIN3 Anion Normal Gap 7 LAB GLUC3 70-100 mg/dL High Glucose 110 LAB BUN3 7-20 mg/dL Urea Normal Nitrogen 18 LAB CRET3 0.52-1.25 mg/dL Normal Creatinine 0.73 LAB GF3BR >60 mL/min eGFR Normal >60.0 LAB GF3WR >60 mL/min eGFR Normal OTHER >60.0 Result Comment: Source- MDRD equation with creatinine calibration to IDMS(NKDEP) eGFR not recommended for drug dose adjustment LAB CA3 8.4-10.2 mg/dL Normal Calcium 9.5 Performed By: #### HEMPRAMOD, BMP3M #### [address] [address] ED NOTE Observed: 12/29/2017 Status: COMPLETED Source: [place] 10:50 AM [facility] REPOSITORY HNO ID: [id number] Author: Melvin (Rn) NEY Lee Service: Emergency Medicine Author Type: Registered Nurse Type: ED Notes Filed: 12/29/2017 10:52 AM Note Text: Report given to [facility], pt to [facility] via [facility], pt sts pain 0/10 with no movement. ED PROV NOTE Observed: 12/29/2017 Status: COMPLETED Source: [place] 8:28 AM [facility] REPOSITORY HNO ID: [id number] Author: Hu Haines MD Service: Emergency Medicine Author Type: Physician Type: ED Provider Notes Filed: 12/29/2017 9:35 AM Note Text: ED Provider Note Patient Name: Sulma Nunes SERVICE DATE: 12/29/17 History Patient presents with: Musculoskeletal Problem HPI PAST MEDICAL HISTORY Diagnosis Date - Abdominal pain, unspecified site - Asthma - HTN (hypertension) PAST SURGICAL HISTORY Procedure Laterality Date - BREAST BIOPSY NEEDLE LEFT - COLONOSCOP W/ OR W/O BRSH SPEC 10/06/13 Colonoscopy - HYSTERECTOMY HX 2006 JEAN-CLAUDE BSO endometriosis FAMILY HISTORY Problem Relation Age of Onset - Cancer Father skin cancer - suicide [OTHER] Brother - None Sister - None Sister - None Sister - Colon Cancer Other multiple aunts and uncles with colon cancer Social History Social History Main Topics - Smoking status: Former Smoker Packs/day: 1.50 Types: Cigarettes Quit date: 11/16/2016 - Smokeless tobacco: Never Used Comment: 1.5-2 packs (10/21/16) - Alcohol use No - Drug use: No - Sexual activity: Yes Partners: Male ALLERGIES Allergen Reactions - Dust Other: See Comments Review of Systems Physical Exam BP 129/50 Pulse 88 Temp (Src) 98.1 (Tympanic) Resp 18 Ht 5' 2 (1.58m) Wt 196 lb (88.9kg) SpO2 92[o2 2 l nc applied, emd notified. continuous pulse ox. applied. ]% BMI 35.84 kg/(m2). Physical Exam Diagnostic Testing ED Labs Ordered and Reviewed BASIC METABOLIC PANEL (AK,AV,EU,FV,HL,VINI,MM,SP) - Abnormal; Notable for the following: Result Value Ref Range Sodium 130 (*) 136 - 145 mEq/L Glucose 127 (*) 70 - 99 mg/dL Anion Gap 5 (*) 8 - 20 BUN/CREATININE RATIO 23 (*) 10 - 20 All other components within normal limits CBC + AUTO DIFF (AK,AV,EU,FV,HL,VINI,MM,SP) - Abnormal; Notable for the following: RBC 3.60 (*) 4.20 - 5.40 mil/cmm HGB 11.1 (*) 12.0 - 16.0 g/dL Hematocrit 33.6 (*) 37.0 - 47.0 % Lymphocyte # 1.40 (*) 1.50 - 3.65 thou/cmm All other components within normal limits MDRD GFR Procedures Medical Decision Making / ED Course ED Course Pt signed out to me at shift change pending transfer for admission. [facility] with consultation requested to surgery for intractable neck pain s/p recent surgical fusion. Pt aware of transfer and all appropriate paperwork has been completed. No diagnosis found. Plan The [facility] Condition at time of disposition: stable SIGNATURE: MD Hu Andrea MD 12/29/17 0935 ED NOTE Observed: 12/29/2017 Status: COMPLETED Source: [place] 7:15 AM [facility] REPOSITORY HNO ID: [id number] Author: Melvin BellaRn) NEY Lee Service: Emergency Medicine Author Type: Registered Nurse Type: ED Notes Filed: 12/29/2017 7:31 AM Note Text: [facility] called for pt admit ED NOTE Observed: 12/29/2017 Status: COMPLETED Source: [place] 7:04 AM [facility] REPOSITORY HNO ID: [id number] Author: Jakob Carreon) NEY Mcfadden Service: Emergency Medicine Author Type: Registered Nurse Type: ED Notes Filed: 12/29/2017 7:04 AM Note Text: Report to ER day shift staff. ED NOTE Observed: 12/29/2017 Status: COMPLETED Source: [place] 6:14 AM [facility] REPOSITORY HNO ID: [id number] Author: Jakob Carreon) NEY Mcfadden Service: Emergency Medicine Author Type: Registered Nurse Type: ED Notes Filed: 12/29/2017 6:15 AM Note Text: [facility] answering service called. Dr Mejia is the office manager receptionist physician. The answering service will page him for Dr. Toledo at this time. ED NOTE Observed: 12/29/2017 Status: COMPLETED Source: [place] 6:12 AM [facility] REPOSITORY HNO ID: [id number] Author: Edgard BellaRn) NEY Palacios Service: Emergency Medicine Author Type: Registered Nurse Type: ED Notes Filed: 12/29/2017 6:14 AM Note Text: Assisted to from bsc, intermittent yelling and c/o severe pain. States initially pain medication made it easier to get to bsc after assist back to bed, pt surgical site was evaluated by emd. Pt requesting additional pain coverage. emd at bed side. ED NOTE Observed: 12/29/2017 Status: COMPLETED Source: [place] 5:49 AM [facility] REPOSITORY HNO ID: [id number] Author: Edgard (Rn) NEY Palacios Service: Emergency Medicine Author Type: Registered Nurse Type: ED Notes Filed: 12/29/2017 5:50 AM Note Text: Pt yelling in pain, refusing to let emd examin back or surgical site d/t pain. Pt medicated as ordered threw existing iv, Labs also lata from existing iv. ED PROV NOTE Observed: 12/29/2017 Status: COMPLETED Source: [place] 5:37 AM [facility] REPOSITORY HNO ID: [id number] Author: Jakob Toledo MD Service: Emergency Medicine Author Type: Physician Type: ED Provider Notes Filed: 12/29/2017 8:15 AM Note Text: ED Provider Note Patient Name: Sulma Nunes SERVICE DATE: 12/29/17 History Patient presents with: Musculoskeletal Problem Patient is a 57 year old female presenting with neck pain. 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: No Neck Pain Pain location: Generalized neck Quality: Cramping Pain radiates to: Does not radiate Pain severity: Severe Pain is: Same all the time Onset quality: Unable to specify Duration: 6 days Timing: Constant Progression: Worsening Chronicity: New Context comment: 7 days ago had c2-c7 fusion Relieved by: Nothing Worsened by: Position Ineffective treatments: Muscle relaxants and analgesics (on 10mg oxycodone every 4hr and flereil 10mg 3x/day ) Associated symptoms: no bladder incontinence, no bowel incontinence, no chest pain, no fever, no headaches, no leg pain, no numbness, no paresis, no tingling, no visual change, no weakness and no weight loss Risk factors: no recent epidural, no recent head injury and no recurrent falls PAST MEDICAL HISTORY Diagnosis Date - Abdominal pain, unspecified site - Asthma - HTN (hypertension) PAST SURGICAL HISTORY Procedure Laterality Date - BREAST BIOPSY NEEDLE LEFT - COLONOSCOP W/ OR W/O BRSH SPEC 10/06/13 Colonoscopy - HYSTERECTOMY HX 2006 JEAN-CLAUDE BSO endometriosis FAMILY HISTORY Problem Relation Age of Onset - Cancer Father skin cancer - suicide [OTHER] Brother - None Sister - None Sister - None Sister - Colon Cancer Other multiple aunts and uncles with colon cancer Social History Social History Main Topics - Smoking status: Former Smoker Packs/day: 1.50 Types: Cigarettes Quit date: 11/16/2016 - Smokeless tobacco: Never Used Comment: 1.5-2 packs (10/21/16) - Alcohol use No - Drug use: No - Sexual activity: Yes Partners: Male ALLERGIES Allergen Reactions - Dust Other: See Comments Review of Systems Constitutional: Negative for activity change, appetite change, chills, fever and weight loss. Cardiovascular: Negative for chest pain, palpitations and leg swelling. Gastrointestinal: Negative for abdominal pain, bowel incontinence, nausea and vomiting. Genitourinary: Negative for bladder incontinence. Musculoskeletal: Positive for neck pain. Negative for arthralgias, back pain and myalgias. Skin: Negative for color change, pallor, rash and wound. Allergic/Immunologic: Negative for environmental allergies, food allergies and immunocompromised state. Neurological: Negative for dizziness, tingling, weakness, numbness and headaches. Psychiatric/Behavioral: Negative for confusion and self-injury. The patient is nervous/anxious. Physical Exam BP 141/84 Pulse 111 Temp (Src) 98.1 (Tympanic) Resp 22 Ht 5' 2 (1.58m) Wt 196 lb (88.9kg) SpO2 98% BMI 35.84 kg/(m2). Physical Exam Constitutional: She is oriented to person, place, and time. She appears well-developed and well-nourished. HENT: Head: Normocephalic and atraumatic. Eyes: Conjunctivae and EOM are normal. Right eye exhibits no discharge. Left eye exhibits no discharge. No scleral icterus. Neck: Dressing on neck looks clean no visible cellulitis. Pain difusely with minimum movement . Feels spasms intermitently in entire neck , Cardiovascular: Normal rate, regular rhythm and normal heart sounds. Pulmonary/Chest: Effort normal and breath sounds normal. No respiratory distress. Abdominal: Soft. She exhibits no distension. There is no tenderness. Musculoskeletal: Normal range of motion. She exhibits no edema, tenderness or deformity. Neurological: She is alert and oriented to person, place, and time. Skin: Skin is warm and dry. No rash noted. No erythema. No pallor. Psychiatric: Her behavior is normal. Judgment and thought content normal. anxious Nursing note and vitals reviewed. Diagnostic Testing ED Labs Ordered and Reviewed - No data to display Procedures Medical Decision Making / ED Course ED Course patient is complaining of severe spasms in the neck and upper shoulder area she has intact sensation and strength in the arms and legs she was able to with assistance get up to a bedside commode but even very slight changes in position causes her a lot of discomfort she states that when she was in the hospital she had been on a higher dose of oxycodone and that this has been tapered down slightly she was discharged from the hospital 4 days ago said that she was able to pass a physical therapy testing at that time but feels that she is not able to manage at home she is living with her sister right now sister doesn't feel like she is able to manage the patient at home plus there is a concern from the patient that there could be something wrong with her surgery. No signs of acute infection there is no fever wound doesn't appear to be infected white count is good no acute neuro changes I tried a couple different doses of Dilaudid and some Norflex and Valium and I'm going to contact the surgeon to help for disposition. If she is admitted for intractable pain it's going to need to be at a facility where the surgeon would be able to see her. Called to [facility] Transfer Line. [facility] was where she had surgery At 0800 pt feeling more comfortable as long as she stays still . Valium seemed to work well. Awaiting call back from transfer center . Signed out to Dr Haines at [address]800 Dr Gilliland called at 0815 and pt will be accepted to hospitalist service. No diagnosis found. Plan The Patient was signed out to Dr Haines at 0800 Condition at time of disposition: stable SIGNATURE: MD Jakob Carlin MD 12/29/17 0815 HEMOGRAM/DIFF Collected: 12/29/2017 Status: F Source: [facility] 5:35 AM [facility] SYSTEM REPOSITORY TYPE CODE TESTS RESULT OUT OF REFERENCE UNITS RANGE LAB LWBC(LOINC 4.8-10.8 thou/cmm ) WBC 5.7 LAB LRBC(LOINC 4.20-5.40 mil/cmm ) Low RBC 3.60 LAB LHGB(LOINC 12.0-16.0 g/dL ) Low Hgb 11.1 LAB LHCT(LOINC 37.0-47.0 % ) Low Hct 33.6 LAB LMCV(LOINC 81.0-99.0 fl ) MCV 93.3 LAB LMCH(LOINC 27.0-31.0 pg ) MCH 30.8 LAB LMCHC(LOIN 32.0-36.0 % C) MCHC 33.0 LAB LRDW(LOINC 11.5-15.9 % ) RDW 12.5 LAB LPLT(LOINC 150-400 thou/cmm ) Platelet 382 LAB LMPV(LOINC 7.1-10.5 fl ) MPV 8.5 LAB LSEGT(LOIN % C) Seg Neutrophil 60.1 LAB LLYMP(LOIN % C) Lymphocyte 24.5 LAB LMNO(LOINC % ) Monocyte 11.9 LAB MILES(LOINC % ) Eosinophil 2.8 LAB LBASO(LOIN % C) Basophil 0.7 LAB LSEGN(LOIN 3.00-5.67 thou/cmm C) Abs. Neut 3.42 LAB LLYMN(LOIN 1.50-3.65 thou/cmm C) Low Abs. Lymph 1.40 LAB LMONN(LOIN 0.20-1.00 thou/cmm C) Abs. Hawkins 0.68 LAB LEOSN(LOIN 0.00-0.41 thou/cmm C) Abs. Eosin 0.16 LAB LBASN(LOIN 0.00-0.08 thou/cmm C) Abs. Baso 0.04 Performed By: #### LCBCD #### [place] [address] BASIC PANEL Collected: 12/29/2017 Status: F Source: [facility] 5:35 AM HEALTH SYSTEM REPOSITORY TYPE CODE TESTS RESULT OUT OF REFERENCE UNITS RANGE LAB MICROPHONE OPERATOR(LOINC) 136-145 mEq/L Low Sodium Blood 130 LAB LK(LOINC) 3.5-5.1 mEq/L Potassium Blood 4.2 LAB LCL(LOINC) 98-107 mEq/L Chloride Blood 103 LAB LCO2(LOINC 21-32 mEq/L ) CO2 Blood 26 LAB LGLU(LOINC 70-99 mg/dL ) Glucose High Blood 127 LAB LBUN(LOINC 7-25 mg/dL ) BUN Blood 15 LAB LCREA(LOIN 0.51-0.95 mg/dL C) Creatinine Blood 0.65 LAB LCA(LOINC) 8.5-10.1 mg/dL Calcium Blood 9.1 LAB LANGP(LOIN 8-20 C) Low Anion Gap 5 LAB LBNCR(LOIN 10-20 C) High BUN/Creatinine 23 Ratio Performed By: #### LP8 #### [facility] [address] [place] [address] MDRD EGFR Collected: 12/29/2017 Status: F Source: [facility] 5:35 AM HEALTH SYSTEM REPOSITORY TYPE CODE TESTS RESULT OUT OF RANGE REFERENCE UNITS LAB LGFRF(LOINC >60mL/min/1.73m ) 2 eGFR >60 Result Comment: If the patient is , multiply the result by 1.210. Performed By: #### LGFR #### [facility] [address] [place] [address] ED NOTE Observed: 12/29/2017 Status: COMPLETED Source: [place] 5:16 AM [facility] REPOSITORY HNO ID: [id number] Author: Jakob BellaRn) NEY Mcfadden Service: Emergency Medicine Author Type: Registered Nurse Type: ED Notes Filed: 12/29/2017 5:29 AM Note Text: Unable to visualize incision site on neck due to pain. Physician aware. PROGRESS Observed: 12/22/2017 Status: COMPLETED Source: [place] 8:34 AM [facility] REPOSITORY HNO ID: [id number] Author: Yamini De La Paz) [place] Service: (none) Author Type: Physician Multi Purpose Machine Operator Type: Progress Notes Filed: 12/22/2017 9:12 AM Note Text: 57 year old female with c/o consultation for preop clearance requested by Dr. Ruy Gilliland. My findings and recommendations with be communicated via this note. Patient presents for preop clearance. Upcoming surgery for: neck surgery. MRI is not definitive: not sure exactly what procedure. 12/22/16 schedule date Hx of previous anesthesia problems: No. Family hx of anesthesia problems: No. Current signs of infection: No. Chest pain: No. 05/11/17 EKG NSR. 04/10/17 NUCLEAR STRESS TEST: WNL EF 77% Shortness of breath: No. HX COPD taking inhalers. 03/27/17 PFT pre and post bronch: FVC 106%, FEV1 94%, FEF 25-75 60% with 25 % increase post. Known sleep apnea: No. Hx of clotting issues: No. Current bleeding or bruising: No. No routine ASA. Stopped Aleve this week. HISTORIES FAMILY HISTORY Problem Relation Age of Onset - Cancer Father skin cancer - suicide [OTHER] Brother - None Sister - None Sister - None Sister - Colon Cancer Other multiple aunts and uncles with colon cancer PAST MEDICAL HISTORY Diagnosis Date - Abdominal pain, unspecified site - Asthma - HTN (hypertension) PAST SURGICAL HISTORY Procedure Laterality Date - BREAST BIOPSY NEEDLE LEFT - COLONOSCOP W/ OR W/O BRSH SPEC 10/06/13 Colonoscopy - HYSTERECTOMY HX 2006 JEAN-CLAUDE BSO endometriosis Social History Marital status: Spouse name: Years of education: Number of children: 4 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 History 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 Social History Main Topics Smoking status: Former Smoker Packs/day: 1.50 Years: 0.00 Types: Cigarettes Quit date: 11/16/2016 Smokeless status: Never Used Comment: 1.5-2 packs (10/21/16) Alcohol use: No Drug use: No Sexual activity: Yes Partners with: Male ACTIVE PROBLEM LIST Asthma Anxiety and Depression Cervical Radicular Pain Brachial Neuritis Or Radiculitis Essential Hypertension Etoh Abuse Rlq Abdominal Pain Encounter for Screening for Malignant Neoplasm of Colon Current Outpatient Prescriptions: polyethylene glycol 3350 (MIRALAX, GLYCOLAX) 17 gram/dose powder Take 17 g by mouth once daily. This is one (1) capful. Stir in 8oz of liquid each day. Disp: 510 g Rfl: 11 buPROPion XL (WELLBUTRIN XL) 300 mg 24 hr tablet Take 1 tablet by mouth once daily. Disp: 30 tablet Rfl: 0 dicyclomine (BENTYL) 20 mg tablet Take 1 tablet by mouth every 6 hours. prn Disp: 40 tablet Rfl: 0 peg 3350-electrolytes (COLYTE) 240-22.72-6.72 -5.84 gram solution Take 4000 ml as directed. Follow written instructions from the doctor's office. Disp: 1 Container Rfl: 0 sertraline (ZOLOFT) 50 mg tablet Take 1/2 tab once a day orally for one week then 1 tab once a day Disp: 30 tablet Rfl: 1 flunisolide (AEROSPAN) 80 mcg/actuation HFAA Inhale 2 Puffs as instructed twice daily. Rinse mouth after use. Disp: 3 Inhaler Rfl: 3 hydrOXYzine pamoate (VISTARIL) 25 mg capsule Take 1 capsule by mouth three times daily as needed. Disp: 30 capsule Rfl: 0 fluticasone (FLONASE) 50 mcg/actuation nasal spray Use 2 Sprays in each nostril once daily. FOR ALLERGIC NASAL SX. Disp: 1 Bottle Rfl: 2 ipratropium-albuterol (COMBIVENT RESPIMAT) 20-100 mcg/actuation mist Inhale 1 Puff as instructed four times daily. Disp: 3 Cartridge Rfl: 3 albuterol HFA (VENTOLIN HFA) 90 mcg/actuation inhaler Inhale 2 Puffs as instructed every 4 hours as needed for Wheezing/Shortness of Breath. Disp: 1 Inhaler Rfl: 5 lisinopril (ZESTRIL, PRINIVIL) 10 mg tablet Take 1 tablet by mouth once daily. Disp: 90 tablet Rfl: 3 thiamine (VITAMIN B1) 100 mg tablet Take 1 tablet by mouth once daily. Disp: 30 tablet Rfl: 4 No current facility-administered medications for this visit. TETANUS due on 1970 ONE PNEUMOVAX PRIOR TO AGE 65 due on 1978 MAMMOGRAM due on 01/13/2018 REVIEW OF SYMPTOMS: General: + fatigue, unusual weight loss or gain, fevers, chills. Weight a few pounds up. Sleep poor. Eyes: denies change in vision. glaucoma, cataracts. Glasses for distance. EENT: denies recurrent sinus infection, unusual nasal drainage, hoarsemess, sore throat, or recurrent sore in mouth or tongue. Cardiovascular: denies chest pain , SOB, palpitation, irregular or racing heart beats, orthopnea, leg swelling, history of rheumatic fever or prior heart conditions Respiratory: Asthma. Retired smoker last year. 28-30pk years. Occasional use rescue inhaler: once every 4 days. Triggered by colds air. denies unusual cough, history of recurrent bronchitis, pneumonia or tuberculosis. Denies day time drowsiness. -Snoring. -sleep apnea. GI: Occasional use omeprazole for heart burn. denies difficulty swallowing or food dysphagia, nausea, vomiting, change in appetite. No change in bowel habits. Denies constipation, diarrhea, rectal bleeding or hemorrhoids, incontinence. No history of GERD, PUD, jaundice/hepatitis, GB disease, diverticulosis, colorectal cancer, hernias. Kidney/Bladder: Denies frequency, burning. Nocturia: 1-2, incontinence none. No history of kidney stones, recurrent UTI or kidney infection. . JEAN-CLAUDE+ BSO due to endometriosis. Had a lot of scar tissue. Hx of multiple ovarian cysts with one surgery, No pelvic infection, No tubal , Hx abnormal pap: cryo. Skin: denies unusual rashes. No history of skin cancer, bleeding/changing moles, or unusual skin lesions. Neurologic: Denies recurrent BAIRES, change in vision, hearing or smell, tremors, unusual weakness, loss of sensation, or difficulty with balance or gait. No history of epilepsy/convulsions, migraine, head/spinal injuries, or stroke/TIA. Psychiatric: Depression currently controlled in medication. Hx ETOH sober x 1 year. No suicidal thoughts or hx of gestures. Endocrine: denies unusual thirst, hunger, excessive urination, change in skin or hair texture, emotional lability. No history of thryoid, pituitary or hormonal problems. Hematologic: denies unusual bleeding, bruising, or history of anemia or blood transfusion. Infections: denies risk factors for HIV, hepatitis or history of unusual infection. Immunizations are up to date. Musculoskeletal: denies unusual stiffness, muscles aches, joint pain, or swelling. Denies recurrent sprain or disruption of joints, debilitating arthritis, gout, or other musculoskeletal disease. Hx cervical radiculopathy. EKG sinus tachycardia, VR 109, no ischemic changes. Tachycardia resolved. LAB: 12/18/17 Na 135, K+ 4.0, BUN 24, creatinine 1.05, GFR 53.7 EXAM: BP 126/74 (BP Site: Right Arm, BP Position: Sitting, BP Cuff Size: Regular Adult) Pulse 78 Temp 37 ?C (98.6 ?F) (Left Tympanic) Resp 12 Wt 88.9 kg (196 lb) BMI 35.85 kg/m2 General appearance: Pleasant overweight woman, in no acute distress. Well nourished. Well groomed. Pleasant spirits. Respirations: regular, unlabored Color: pink to lips and nailbeds Skin: warm, dry, no unusual rashes or lesions Head: Normocephalic Eyes: sclerae and conjunctivae without injection or exudate, PERRLA, EOMI, corneal light reflex symmetric bilaterally. Ears: TM's and ear canals are clear bilaterally with normal landmarks, no swelling or deformity external ear Nose/Sinuses: Nose patent. No turbinate swelling. No active exudate. Maxillary and frontal sinuses nontender to percussion. Oropharynx: Lips, mucosa, and tongue free from lesions. Teeth are in good repair. Gums without inflammation. Oropharynx no exudate or injection. No tonsillar hypertrophy. Neck: Neck supple, no cervical lymphadenopathy; thyroid without mass or tenderness. Chest: normally shaped, equal expansion with breaths. Lungs: Lungs clear to auscultation and percussion. No crackles or wheezes. Heart: RRR without murmur, gallop, or rubs. S1 and S2 normal. Abd soft, nontender, normoactive bowel sounds throughout, no mass, no organomegaly. insulation board back tender left upper shoulder, posterior midline neck. Normal lordosis lumbar. Extremities well formed, FROM and strength, no clubbing cyanosis or edema. Neuro grossly intact. Normal gait and balance. Able to squat without difficulty. DTR's 2+/4 symmetric upper and lower bilaterally. Rhomberg is negative. ASSESSMENT/PLAN: 1. Preoperative clearance - ICD9: V72.84, ICD10: Z01.818 (primary diagnosis) Granted. Thank you Dr. Gilliland for the opportunity to participate in the care of this patient. 2. Uncomplicated asthma, unspecified asthma severity, unspecified whether persistent - ICD9: 493.90, ICD10: J45.909 Moderate persistent Asthma stable - Continue current meds - Avoidance of triggers recommended 3. Anxiety and depression - ICD9: 300.00, 311, ICD10: F41.8 Stable 4. Cervical radicular pain - ICD9: 723.4, ICD10: M54.12 Surgery scheduled. Has been on chronic narcotic pain management 5. Essential hypertension - ICD9: 401.9, ICD10: I10 - good control - Recommended regular aerobic exercise. - Recommend home blood pressure monitoring, to bring results in on next visit - Goal of BP <130/80 6. ETOH abuse - ICD9: 305.00, ICD10: F10.10 Sober over last year 7. Chronic renal insufficiency, stage 3 (moderate) - ICD9: 585.3, ICD10: N18.3 Follow in 3 months. ARMANDO Cason Observed: 12/15/2017 Status: COMPLETED Source: [place] 12:00 AM [facility] REPOSITORY [facility] EVELINASULMA Nix ([id number]) 1960 F Date Time Provider Department 12/15/17 CONTRERAS VALDIVIA During your visit today, we recorded the following information about you: Yamini Lloyd RN 12/15/2017 2:33 PM Signed Patient reports she is scheduled with Dr. Becker, from [facility], to have ANDquot;Anterior or Posterior Decompression InfusionANDquot; for surgical repair of neck ANDquot;disc out of place.ANDquot; Surgery will take place at [facility], on 12-23-17 at 7 am. She will have bloodwork done for Dr. Becker, tomorrow at [facility]. Dr. Becker gave her a form for pcp to fill out for medical clearance before surgery. It's a 1 page form. Asking if pcp can give her an appt for this? Any time works for her. Please phone patient with reply. Gabriella Douglass RANDY 12/15/2017 3:05 PM Signed Patient notified able to utilize open access for pre-op. She is going to try to come to open access on Thursday. Codie Espinosa LPN 12/21/2017 12:23 PM Signed Form in nurses station. Allergies As of Date: 12/15/2017 Noted Allergy Reaction DUST 06/30/2017 14 - Other: See Comments Date Reviewed: 11/02/2017 Reviewed by: Nena Gregory LPN - Fully Assessed Reason for Visit: Medical Clearance appt [Other] Prescriptions as of 12/15/2017 Sig: POLYETHYLENE GLYCOL 3350 17 G* Take 17 g by mouth once daily* BUPROPION XL 300 MG 24 HR TAB Take 1 tablet by mouth once d* DICYCLOMINE 20 MG TABLET Take 1 tablet by mouth every * PEG 3350 240 GRAM-ELECTROLYTE* Take 4000 ml as directed. Fo* SERTRALINE 50 MG TABLET Take 1/2 tab once a day orall* FLUNISOLIDE 80 MCG/ACTUATION * Inhale 2 Puffs as instructed * HYDROXYZINE PAMOATE 25 MG CAP* Take 1 capsule by mouth three* FLUTICASONE 50 MCG/ACTUATION * Use 2 Sprays in each nostril * IPRATROPIUM 20 MCG-ALBUTEROL * Inhale 1 Puff as instructed f* ALBUTEROL SULFATE HFA 90 MCG/* Inhale 2 Puffs as instructed * LISINOPRIL 10 MG TABLET Take 1 tablet by mouth once d* THIAMINE HCL (VITAMIN B1) 100* Take 1 tablet by mouth once d* Problem List As Of Date 12/15/2017 Noted Resolved Asthma [J45.909] INVALID FOR* Anxiety and depression [F41.8] INVALID FOR* Tobacco use disorder [F17.200] INVALID FOR*03/09/2017 Cervical radicular pain [M54.12] INVALID FOR* Brachial neuritis or radiculitis [M54.12] INVALID FOR* Essential hypertension [I10] INVALID FOR* ETOH abuse [F10.10] INVALID FOR* RLQ abdominal pain [R10.31] INVALID FOR* More... Encounter for screening for malignant neoplasm *INVALID FOR* More... Encounter Status:Closed by GABRIELLA DOUGLASS LPN on 12/15/17 EMERGENCY DEPARTMENT Observed: 12/07/2017 Status: F Source: [facility] SUMMARY 4:47 PM [facility] REPOSITORY [facility] Medical Records Department [address] [place] [id number] Emergency Department Summary 12/07/17 1206 MR#: [id number] Acct: [id number] Name: SULMA NUNES Rep #: [id number] : 1960 57 From: Avery Hernandez MD PCP: Contreras Valdivia MD Status: DEP ER - ER Visit Summary Date of Service: 12/07/17 Chief Complaint: Neck pain History of Present Illness: The patient is a [address] Montez and Dr. Valdivia. She reports that she has had neck pain for months. She saw Dr. Montez in the office on December 02 and had it manipulated. Since that time her pain is been much worse. It is a sharp pain that is 10 and 10 severity. Is worsened with movement of her head. Is relieved by remaining still, Aleve, and [place]. She states that it radiates to her left shoulder and then down toward her left elbow. She denies any numbness or weakness. No problems with her bowels or her bladder. No groin numbness. She reports that she has an appointment with Dr. James of pain management on December 22 and has had an MRI recently. She is an appointment to see Dr. Adkins, but she cannot remember when this is. Review of systems: General: No fever, chills, cold sweats. Cardiovascular: No chest pain, palpitations. Respiratory: No cough, shortness of breath, dyspnea on exertion. Gastrointestinal: No abdominal pain, nausea, vomiting, diarrhea, melena, or hematochezia. Genitourinary: No dysuria, frequency, hematuria. Skin: No rash. Neuro: No headache, numbness, weakness. Physical Examination: Vitals: Stable. Afebrile. General: Well-nourished and well-developed. Head: Normocephalic atraumatic. Neck: Moderate diffuse tenderness palpation over entire C- spine in the left trapezius muscle. There is no point tenderness. She has normal sensation to light touch in C5-T1 distribution. She has 5 out of 5 disbursing agent bilaterally she has normal median/ulnar/radial nerve function in both motor and sensory distributions. She is a 2+ radial pulse bilaterally. 2+ and symmetric brachioradialis and triceps reflexes bilaterally. Cardiovascular: Regular rate and rhythm. No murmurs. Respiratory: No respiratory distress. Clear to auscultation bilaterally. Abdominal: Soft, nontender, nondistended, normal bowel sounds. No guarding, rebound, or peritoneal signs. Back: Nontender. Extremities: Nontender, no edema. Skin: Normal color, no rash. Neurologic: Alert and oriented 3. Cranial nerves II through XII are intact. Normal strength and sensation. Psych: Normal affect. Emergency Department Course and Treatment: An [facility] report was obtained which show she has had 4 prescriptions for opiates in the past year. The most recent of these was from Dr. Montez. He gave her prescription for 35/325 [place] on December 02. She was given a dose of morphine and Norflex IM. She is given prednisone p.o. Treatment Plan: She will be discharged prescription for 20 more [place]. She is also given Norflex and prednisone. Instructed to follow-up with pain management and Dr. Adkins as soon as possible. Follow-up with Dr. Montez in 3-5 days if not improving. Return to the emergency department for any worsening symptoms. Disposition: To home in improved and stable condition. Impression: 1. Acute on chronic neck pain. This note was generated with [employer] dictation software. It may contain incorrect words, spelling, and punctuation that were not noted in review of the chart prior to signing ED Disposition - Plan for ED Patient: Disposition: Home or Assisted Living Chief Complaint: Other, Pain/Inj Instructions: ED Neck Pain No Trauma Prescriptions: Hydrocodone Bitart/Apap 5-325 [[place] 5/325] 1 - 2 tablet PO Q4H PRN PRN #20 tablet PRN Reason: Pain Prednisone 10 mg PO DAILY #63 tablet Orphenadrine [Norflex ER] 100 mg PO BID #20 tablet Referrals: Ruy Beltran MD [NON-STAFF] - As soon as possible Yefri James [NON-STAFF] - As soon as possible Fabio Zarco MD [STAFF PHYSICIAN] - 3-5 Days if not improving What to do if you have Problems For any increased pain, shortness of breath, bleeding, nausea or vomiting, chest pain, or any unexpected problems, contact your Primary Care Provider. Call [facility] ([phone]) or report to the closest Emergency Room. Call 911 if necessary. 12/07/17 7695 <Electronically signed by Avery Hernandez MD> Date Avery Hernandez MD Cosigner Signature (If Indicated): Date CC: Contreras Valdivia MD OBSOLETE Observed: 12/01/2017 Status: COMPLETED Source: [place] 12:00 AM [facility] REPOSITORY Refill ([facility]) SULMA NUNES ([id number]) 1960 F Date Time Provider Department 12/01/17 CONTRERAS VALDIVIA During your visit today, we recorded the following information about you: Pati Mckeon Psr 12/01/2017 10:12 AM Signed Patient phones requesting refills as follows: Pending Prescriptions Disp Refills BUPROPION XL 300 MG 24 HR TAB 30 tablet 0 Sig: Take 1 tablet by mouth once daily. RAMON: No DICYCLOMINE 20 MG TABLET 40 tablet 0 Sig: Take 1 tablet by mouth every 6 hours. prn RAMON: No Please review and advise. Pati Mckeon Psr Allergies As of Date: 12/01/2017 Noted Allergy Reaction DUST 06/30/2017 14 - Other: See Comments Date Reviewed: 11/02/2017 Reviewed by: Nena Gregory LPN - Fully Assessed Reason for Visit: Refill Request [94] Visit Diagnosis:RLQ abdominal pain [R10.31] Order(s):buPROPion XL (WELLBUTRIN XL) 300 mg 24 hr tabletTake 1 tablet by mouth once daily.Disp: 30 tabletRfl: 0 dicyclomine (BENTYL) 20 mg tabletTake 1 tablet by mouth every 6 hours. prnDisp: 40 tabletRfl: 0 Prescriptions as of 12/01/2017 Sig: BUPROPION XL 300 MG 24 HR TAB Take 1 tablet by mouth once d* DICYCLOMINE 20 MG TABLET Take 1 tablet by mouth every * PEG 3350 240 GRAM-ELECTROLYTE* Take 4000 ml as directed. Fo* SERTRALINE 50 MG TABLET Take 1/2 tab once a day orall* FLUNISOLIDE 80 MCG/ACTUATION * Inhale 2 Puffs as instructed * HYDROXYZINE PAMOATE 25 MG CAP* Take 1 capsule by mouth three* FLUTICASONE 50 MCG/ACTUATION * Use 2 Sprays in each nostril * IPRATROPIUM 20 MCG-ALBUTEROL * Inhale 1 Puff as instructed f* ALBUTEROL SULFATE HFA 90 MCG/* Inhale 2 Puffs as instructed * LISINOPRIL 10 MG TABLET Take 1 tablet by mouth once d* THIAMINE HCL (VITAMIN B1) 100* Take 1 tablet by mouth once d* Problem List As Of Date 12/01/2017 Noted Resolved Asthma [J45.909] INVALID FOR* Anxiety and depression [F41.8] INVALID FOR* Tobacco use disorder [F17.200] INVALID FOR*03/09/2017 Cervical radicular pain [M54.12] INVALID FOR* Brachial neuritis or radiculitis [M54.12] INVALID FOR* Essential hypertension [I10] INVALID FOR* ETOH abuse [F10.10] INVALID FOR* RLQ abdominal pain [R10.31] INVALID FOR* More... Encounter for screening for malignant neoplasm *INVALID FOR* More... Prescriptions ordered this encounter Disp Refills Start End BUPROPION XL 300 MG 24 HR TAB 30 t* 0 12/01/2017 Route: ORAL Sig: Take 1 tablet by mouth once daily. DICYCLOMINE 20 MG TABLET 40 t* 0 12/01/2017 Route: ORAL Sig: Take 1 tablet by mouth every 6 hours. prn Medications Discontinued During This Encounter buPROPion XL (WELLBUTRIN XL) 300 mg * 30 t* 0 10/21/2017 12/01/2017 Sig: TAKE ONE TABLET BY MOUTH ONCE DAILY Disc: Reason for discontinue is not on file. dicyclomine (BENTYL) 20 mg tablet 40 t* 0 10/23/2017 12/01/2017 Route: ORAL Sig: Take 1 tablet by mouth every 6 hours. prn Disc: Reason for discontinue is not on file. Encounter Status:Closed by CONTRERAS VALDIVIA MD on 12/01/17 TOSHIA Observed: 11/13/2017 Status: COMPLETED Source: [place] 12:00 AM [facility] REPOSITORY Telephone ([facility]) SULMA NUNES ([id number]) 1960 F Date Time Provider Department 11/13/17 ALYX CANDELARIO ([place]) [facility] During your visit today, we recorded the following information about you: Nena Gregory LPN 11/13/2017 11:10 AM Signed Patient called back and scheduled a colonoscopy for 12-07-[address] Sierra. Please approve orders then I will submit a surgical request to the schedulers. Alyx Candelario RN CNP 11/13/2017 11:12 AM Signed Orders signed. Alyx Candelario RN ESL PROFESSOR Nena Gregory LPN 11/13/2017 11:20 AM Signed Mailed out written instructions to patient. Nena Gregory LPN Allergies As of Date: 11/13/2017 Noted Allergy Reaction DUST 06/30/2017 14 - Other: See Comments Date Reviewed: 11/02/2017 Reviewed by: Nena Gregory LPN - Fully Assessed Reason for Visit: Procedure [88] Cmt: colon Primary Visit Diagnosis:Encounter for screening for malignant neoplasm of colon [Z12.11] Other Visit Diagnosis:RLQ abdominal pain [R10.31] Order(s):COLONOSCOPY - DIAGNOSTIC [[id number]] Order #: [id number] FUTURE peg 3350-electrolytes (COLYTE) 240-22.72-6.72 -5.84 gram solutionTake 4000 ml as directed. Follow written instructions from the doctor's office.Disp: 1 ContainerRfl: 0 SURGICAL REQUEST - ELECTIVE [[id number]] Order #: [id number]: 1 Prescriptions as of 11/13/2017 Sig: PEG 3350 240 GRAM-ELECTROLYTE* Take 4000 ml as directed. Fo* SERTRALINE 50 MG TABLET Take 1/2 tab once a day orall* DICYCLOMINE 20 MG TABLET Take 1 tablet by mouth every * BUPROPION XL 300 MG 24 HR TAB TAKE ONE TABLET BY MOUTH ONCE* FLUNISOLIDE 80 MCG/ACTUATION * Inhale 2 Puffs as instructed * HYDROXYZINE PAMOATE 25 MG CAP* Take 1 capsule by mouth three* FLUTICASONE 50 MCG/ACTUATION * Use 2 Sprays in each nostril * IPRATROPIUM 20 MCG-ALBUTEROL * Inhale 1 Puff as instructed f* ALBUTEROL SULFATE HFA 90 MCG/* Inhale 2 Puffs as instructed * LISINOPRIL 10 MG TABLET Take 1 tablet by mouth once d* THIAMINE HCL (VITAMIN B1) 100* Take 1 tablet by mouth once d* Problem List As Of Date 11/13/2017 Noted Resolved Asthma [J45.909] INVALID FOR* Anxiety and depression [F41.8] INVALID FOR* Tobacco use disorder [F17.200] INVALID FOR*03/09/2017 Cervical radicular pain [M54.12] INVALID FOR* Brachial neuritis or radiculitis [M54.12] INVALID FOR* Essential hypertension [I10] INVALID FOR* ETOH abuse [F10.10] INVALID FOR* RLQ abdominal pain [R10.31] INVALID FOR* More... Encounter for screening for malignant neoplasm *INVALID FOR* More... Prescriptions ordered this encounter Disp Refills Start End PEG 3350 240 GRAM-ELECTROLYTES 22.72* 1 Co* 0 11/13/2017 Sig: Take 4000 ml as directed. Follow written instructions from the doctor's office. Encounter Status:Closed by NENA GREGORY LPN on 11/13/17 SMALL BOWEL SERIES Observed: 11/06/2017 Status: F Source: [facility] 8:19 AM [facility] REPOSITORY [facility] Imaging Services [address] [place] [id number] Small Bowel Series Only MR#: [id number] Acct: [id number] Name: SULMA NUNES Rep #: [id number] : 1960 F 57 From: Edgar Pandey MD PCP: Contreras Valdivia MD Status: REG CLI Study: Small Bowel Series Only Date of Exam: 11/06/17 Exam# [id number] Ordering Dr: Alyx Candelario PROCEDURE: SMALL BOWEL SERIES DATE OF EXAMINATION: November 06, 2017. INDICATION: Female, 57 years old. Right lower quadrant pain. PHYSICIAN: Edgar Pandey M.D. TECHNIQUE: Radiographic and fluoroscopic images were taken of the small intestine following the ingestion of barium. COMPARISON: None. FINDINGS: A preliminary supine KUB was obtained. There is an unremarkable bowel gas pattern. Fecal material is present throughout the colon. Mild degree of disc space narrowing at the L5-S1 level. The patient orally ingested approximately 12 ounces of thin barium Normal visualized fundus, body, and antrum of the stomach. Normal duodenal bulb, C-loop, and proximal jejunum. Normal visualized mucosal folds of the jejunum and ileum. There are no demonstrated dilatations, strictures, or masses of the small intestine. There is no mass displacement of the loops of small intestine. There is a normal motor pattern with barium reaching the colon within approximately 30 minutes. Spot films under fluoroscopic observation demonstrated a normal terminal ileum and ileocecal valve. RAD/Small Bowel Series Only IMPRESSION: Normal small bowel series. Electronically Signed: Edgar Pandey MD at 11:00 EST Tel [phone], Service support , CC: ALYX CANDELARIO; Contreras Valdivia MD Log Roller: Signed ALLERGIES ALLERGIES DATE TYPE / CODE NAME / CODE REACTION SEVERITY SOURCE 12/07/2017 Drug No Known Unknown [facility] Allergy/4160 Allergies/F00 Hospital 76811(SNOMED 3812240(RXNOR Repository CT) M) 06/30/2017 Environ/4201 DUST OTHER: SEE C [facility] 20135(SNOMED Main [place]) Repository ENCOUNTERS ENCOUNTERS ADMIT/DISCHARGE ACCOUNT NUMBER ADMITTING ENCOUNTER LOCATION SOURCE CLASS 10/15/2018/10/15/20 [id number] Emergency [address] ding:ED Repository 06/10/2018/06/11/20 [id number] Ambulatory [address] Repository 05/28/2018/05/28/20 [id number] Ambulatory [address] Repository 04/14/2018 [id number] Ambulatory [facility] ding:CVS Repository 03/10/2018 [id number] Ambulatory [facility] ding:PSN Repository 03/10/2018 [id number] Ambulatory [facility]: [facility] Repository 03/01/2018/03/01/20 [id number] Ambulatory [address] [place] Repository 03/01/2018/03/01/20 [id number] Ambulatory [address] [place] Repository 03/01/2018/03/01/20 [id number] Ambulatory [address] [place] Repository 03/01/2018/03/02/20 [id number] Ambulatory [address] [place] Repository 02/12/2018/02/13/20 [id number] Ambulatory [address] [place] Repository 02/12/2018/02/16/20 [id number] Ambulatory [address] Repository 12/29/2017 [id number] Amb[address] [place] [address] 4NRoom: System [id number]: Repository [id number] 12/22/2017/12/24/19 [id number] Ambulatory [address] Repository 12/07/2017/12/07/19 [id number] Emergency [address] ding:ED Repository 11/06/2017 [id number] Ambulatory [facility] ding:RAD Repository PAYERS PAYERS ENCOUNTER GUARANTOR PAYER SUBSCRIBER SOURCE 10/15/2018 SULMA Nix Primary Insurance:[facility] SULMA Herediaoster [id number] [facility] BILLUPSDOB: [facility] AVEAPT Number: [id number] [id number] Repository [address]Qat: (330) Date:4562-71-63EL [phone] () [address] [place], [place] [address]WP: 10/15/2018 Secondary NOT GIVENUNK [place] Insurance:SELF PAY [facility] Number: Effective Repository Date:2018-10-15 04/14/2018 Sulma Nix Primary Insurance:[facility] Sulma Herediaoster [id number] [facility] BillupsDOB: [facility] [address] Number: [id number] [id number] Repository [address]Pcx: (330) Date:2216-70-13DH [phone] () [address] [place] [address]HD: 04/14/2018 Secondary NOT GIVENUNK [place] Insurance:SELF PAY [facility] Number: Effective Repository Date:2018-04-02 03/10/2018 Sulma Nix Primary Insurance:[facility] Sulma A [place] [id number] [facility] PLANPolicy BillupsDOB: [facility] [place] [address] Number: [id number] [id number] Repository [address]Afh: 330) Date:3692-03-92NJ [phone] () [address] [place] [address] 45[address]KL: 03/10/2018 Secondary NOT GIVENUNK [place] Insurance:SELF PAY [facility] Number: Effective Repository Date:2018-03-02 03/10/2018 Sulma Nix Primary Insurance:[facility] Sulma A [place] [id number] [facility] PLANPolic BillupsDOB: [facility] [place] [address] Number: [id number] [id number] Repository [address]Lhy: (330) Date:5669-96-40BU [phone] () [address] [place] [address] 27467YX: 03/10/2018 Secondary NOT GIVENUNK [place] Insurance:SELF PAY [facility] Number: Effective Repository Date:2018-03-10 12/29/2017 Sulma Ozuna [facility] BillupsDOB: Insurance:[place] BillupsDOB: [facility] [id number] [facility] A[address] Number: Effective [place], [place] Date: [address]Ups: () 12/07/2017 Sulma Nix Primary Insurance:[facility] Sulma A Kamuela [id number] [facility] PLANPolic BillupsDOB: [facility] [address] Number: [id number] [id number] Repository [address]Dik: (330) Date:3543-89-78LM [phone] () [address] [place] [address]DH: 12/07/2017 Secondary NOT GIVENUNK [place] Insurance:SELF PAY [facility] Number: Effective Repository Date:2017-12-07 11/06/2017 Sulma Nix Primary Insurance:[facility] Sulma Palumbo [id number] [facility] BillupsDOB: [facility] [address] Number: [id number] [id number] Repository 35[address]Zwy: (330) Date:5339-42-77AQ [phone] () [address] [place] [address]DU: 11/06/2017 Secondary NOT GIVENUNK [place] Insurance:SELF PAY [facility] Number: Effective Repository Date:2017-11-02
== END 2018-10-15 10:07 | disposition home or self-care (01) ==
PROVIDERS: Emergency Provider Emergency Medicine; Family Provider Family Medicine; PCP Family Medicine
DX: H43.10 Vitreous hemorrhage, unspecified eye (principal); I10 Essential (primary) hypertension; J44.9 Chronic obstructive pulmonary disease, unspecified; Z87.891 Personal history of nicotine dependence; F32.9 Major depressive disorder, single episode, unspecified
CPT/HCPCS: 99283

== ENCOUNTER → 2020-08-24 17:29 | Outpatient (CLI) | payer MEDICAID, SELFPAY | PROVIDERS: PCP Family Medicine; Referring Provider Nurse Practitioner Family; Visit Provider Nurse Practitioner Family | DX: Z03.818 Encounter for observation for suspected exposure to other biological agents ruled out (principal) | CPT/HCPCS: 87635; C9803; U0003 ==